=== PATIENT | female | born 1980 | race Caucasian/White ===

== ENCOUNTER 2020-05-21 09:09 | Outpatient (NON) | payer OTHER, SELFPAY ==
[2020-05-21 22:15] LABS: SARS-CoV-2 RNA PCR Negative
== END 2020-05-21 09:10 ==
PROVIDERS: Visit Provider Nurse Practitioner Obstetrics & Gynecology
DX: Z20.828 Contact with and (suspected) exposure to other viral communicable diseases (principal); R05 Cough; J02.9 Acute pharyngitis, unspecified; R19.7 Diarrhea, unspecified; R53.1 Weakness
CPT/HCPCS: 87635; C9803; U0003

== ENCOUNTER → 2020-07-25 13:14 | Outpatient (CLI) | payer OTHER, MEDICARE, SELFPAY ==
--- NOTE | ~2020-07-25 | US_ITS ---
US abdomen limited INDICATION: Right upper quadrant pain and bloating PROCEDURE: Realtime right upper abdominal ultrasound. COMPARISON: No prior studies for comparison. FINDINGS: The pancreas is normal without focal mass or pancreatic ductal dilation. Liver echotexture is normal without focal mass or intrahepatic biliary dilatation. There is normal directional flow i n the portal vein. The gallbladder is normal without stones, gallbladder wall thickening or pericholecystic fluid. Comm on bile duct measures 3 mm. No sonographic Felton's sign. IMPRESSION: 1: Normal limited abdominal ultrasound. Reviewed, dictated and finalized at location B.
== END ==
DX: R10.11 Right upper quadrant pain (principal)
CPT/HCPCS: 76705

== ENCOUNTER → 2020-11-19 12:31 | Outpatient (CLI) | payer OTHER, MEDICARE, SELFPAY ==
--- NOTE | ~2020-11-19 | MM_ITS ---
EXAMINATION: MM screening ely BI w elie HISTORY: Screening TECHNIQUE: Craniocaudal and mediolateral oblique 3-D tomosynthesis images were obtained and synthetic 2-D images were generated. CAD analysis was submitted and interpreted. COMPARISON: No prior mammogram is available for comparison at this institution. BREAST PARENCHYMAL COMPOSITION: The breasts are heterogeneously dense, which may obscure small masses . FINDINGS: Bilateral breast asymmetries are stable. There is no evidence of suspicious mass, calcifica tion, or architectural distortion to suggest malignancy in either breast. There has been no suspiciou s interval change. IMPRESSION: 1. No mammographic evidence of malignancy. 2. Recommend routine screening mammography in one year. BI-RADS Category 1: Negative Reviewed, dictated and finalized at location D. ING ROD COATER
== END ==
PROVIDERS: PCP Nurse Practitioner Psychiatric/Mental Health; Visit Provider Nurse Practitioner Obstetrics & Gynecology
DX: Z12.31 Encounter for screening mammogram for malignant neoplasm of breast (principal)
CPT/HCPCS: 77063; 77067

== ENCOUNTER → 2021-02-17 10:45 | Outpatient (CLI) | payer OTHER, MEDICARE, SELFPAY ==
--- NOTE | ~2021-02-17 | CT_ITS ---
EXAMINATION: CT abdomen pelvis w con INDICATION: Pelvic and perineal pain TECHNIQUE: Computed tomographic images of the abdomen and pelvis were obtained after the administrati on of 100 cc of Omnipaque 350 intravenous contrast. The dose-length product (DLP) was 900.64 mGy-cm. Automated exposure control and iterative reconstruction technique were employed. COMPARISON: 01/20/2018 FINDINGS: The lung bases are clear. The heart size is normal. Low attenuation lesions of the liver me asuring up to 3 mm likely represent cysts. The spleen, pancreas, gallbladder, and adrenal glands are normal. The kidneys are unremarkable. No pathologically enlarged abdominal or pelvic lymph nodes are identified. There is no free intraperitoneal gas or evidence of bowel obstruction. IMPRESSION: 1. No CT correlate for the patient's symptoms. Reviewed, dictated and finalized at location A.
== END ==
PROVIDERS: Visit Provider Nurse Practitioner Obstetrics & Gynecology
DX: R10.2 Pelvic and perineal pain (principal)
CPT/HCPCS: 74177; Q9967

== ENCOUNTER → 2021-06-05 10:13 | Outpatient (CLI) | payer OTHER, MEDICARE, SELFPAY ==
--- NOTE | ~2021-06-05 | XR_ITS ---
EXAMINATION: XR_CERV2-3V_CR EXAM DATE: 06/05/2021 10:35 INDICATION: Cervicalgia posteriorly, sometimes down both arms. TECHNIQUE: Cervical spine frontal, lateral, lateral swimmers, and open-mouth odontoid projections. C omparison is made to prior examination from 12/28/2016. FINDINGS: Mild progression in the now moderate loss of the C5-C6 disc height. 2 mm retrolisthesis at this level. The vertebral bodies are otherwise aligned. The vertebral body and disc heights are othe rwise well maintained. Prevertebral soft tissue and pre-dens space are within normal limits. The odon toid process is intact. The lateral masses of C1 line up with C2. Mild cervical facet arthropathy. IMPRESSION: 1. C5-6 moderate disc disease. 2. Mild cervical arthropathy. . Reviewed, dictated and finalized at location B.
== END ==
DX: M47.812 Spondylosis without myelopathy or radiculopathy, cervical region (principal)
CPT/HCPCS: 72040

== ENCOUNTER → 2021-08-05 13:10 | Outpatient (CLI) | payer OTHER, MEDICARE, SELFPAY ==
--- NOTE | ~2021-08-05 | MR_ITS ---
EXAMINATION: MR cervical spine wo con EXAM DATE: 08/05/2021 13:59 INDICATION: Cervicalgia. Neck pain, right arm numbness. Weakness. TECHNIQUE: Multi-sequential, multiplanar MR images of the cervical spine were obtained without contra st. Axial T2, axial T2 MERGE sequence. Sagittal T1, T2, T2 fat saturation images also obtained. Com parison is made to prior examination from 09/12/2017. FINDINGS: There is mild to moderate disc disease at C5-6. There is mild reversal of the normal cervi anibal lordosis which may be positional or spasm. The spinal cord signal intensity and intrinsic morpho logy is normal. Cervicomedullary junction is normal in appearance. There are no suspicious marrow sig nal abnormalities. Paraspinal soft tissue is unremarkable. Level by level evaluation: C2-C3: Disc does not extend beyond the endplate margin. Uncovertebral joint arthropathy: None. Facet joint arthropathy: None. Neural foraminal stenosis: No stenosis. Central canal stenosis: No stenosis. C3-C4: Disc does not extend beyond the endplate margin. Uncovertebral joint arthropathy: Mild bilateral. Facet joint arthropathy: None. Neural foraminal stenosis: No stenosis. Central canal stenosis: No stenosis. C4-C5: Disc does not extend beyond the endplate margin. Uncovertebral joint arthropathy: Mild bilateral. Facet joint arthropathy: None. Neural foraminal stenosis: No stenosis. Central canal stenosis: No stenosis. C5-C6: Disc does not extend beyond the endplate margin. Uncovertebral joint arthropathy: Moderate bilateral. Facet joint arthropathy: Mild bilateral. Neural foraminal stenosis: Moderate to severe right, moderate left. Central canal stenosis: Mild. C6-C7: Disc does not extend beyond the endplate margin. Uncovertebral joint arthropathy: None. Facet joint arthropathy: Mild right. Neural foraminal stenosis: No stenosis. Central canal stenosis: No stenosis. C7-T1: Disc does not extend beyond the endplate margin. Uncovertebral joint arthropathy: None. Facet joint arthropathy: Mild bilateral. Neural foraminal stenosis: No stenosis. Central canal stenosis: No stenosis. IMPRESSION: 1. C5-6 disc bulge, uncovertebral joint arthropathy with moderate to severe right, moderate left jarad ral foraminal stenosis. 2. Otherwise mild cervical spondylosis. Reviewed, dictated and finalized at location A. IMPRESSION: 1. C5-6 disc bulge, uncovertebral joint arthropathy with moderate to severe ri ght, moderate left neural foraminal stenosis. 2. Otherwise mild cervical spondylosis.
== END ==
PROVIDERS: Visit Provider Pediatrics Pediatric Rheumatology
DX: M50.222 Other cervical disc displacement at C5-C6 level (principal); M47.892 Other spondylosis, cervical region
CPT/HCPCS: 72141

== ENCOUNTER → 2022-01-13 13:41 | Outpatient (CLI) | payer OTHER, MEDICARE, SELFPAY ==
--- NOTE | ~2022-01-13 | MM_ITS ---
EXAMINATION: MM screening ely BI w elie HISTORY: Screening mammogram TECHNIQUE: Craniocaudal and mediolateral oblique 3-D tomosynthesis images were obtained and synthetic 2-D images were generated. CAD analysis was submitted and interpreted. COMPARISON: November 19, 2020 bilateral screening mammogram October 15, 2019 bilateral diagnostic mammography and bilateral complete breast ultrasound 09/12/2017 bilateral screening mammogram BREAST PARENCHYMAL COMPOSITION: The breasts are heterogeneously dense, which may obscure small masses . FINDINGS: There is no evidence of suspicious mass, calcification, or architectural distortion to sugg est malignancy in either breast. There has been no suspicious interval change. IMPRESSION: 1. No mammographic evidence of malignancy. 2. Recommend routine screening mammography in one year. BI-RADS Category 1: Negative Reviewed, dictated and finalized at location A.
== END ==
PROVIDERS: Visit Provider Nurse Practitioner Obstetrics & Gynecology
DX: Z12.31 Encounter for screening mammogram for malignant neoplasm of breast (principal)
CPT/HCPCS: 77063; 77067

== ENCOUNTER → 2022-05-10 12:38 | Outpatient (CLI) | payer OTHER, MEDICARE, SELFPAY ==
--- NOTE | ~2022-05-10 | US_ITS ---
US thyroid INDICATION: Thyroid goiter TECHNIQUE: Real-time sonographic images of the thyroid gland were obtained. COMPARISON: No prior studies for comparison. FINDINGS: The right thyroid lobe measures 0.9 x 1.2 x 1.8 cm. The left thyroid lobe measures 5.1 x 1 .5 x 1.9 cm. There is normal echotexture and echogenicity throughout the thyroid gland. There is a be nign 2 mm cystic mass of the right thyroid lobe. Normal vascular flow is present. IMPRESSION: 1. Benign 2 mm cyst of the right thyroid lobe. Otherwise, unremarkable thyroid ultrasound.. Reviewed, dictated and finalized at location A.
== END ==
PROVIDERS: PCP Nurse Practitioner Family; Visit Provider Nurse Practitioner Obstetrics & Gynecology
DX: E04.9 Nontoxic goiter, unspecified (principal); R13.10 Dysphagia, unspecified
CPT/HCPCS: 76536

== ENCOUNTER → 2022-05-13 12:09 | Outpatient (CLI) | payer OTHER, MEDICARE, SELFPAY ==
--- NOTE | ~2022-05-13 | XR_ITS ---
XR cervical spine 4-5V DATE: 05/13/2022 12:31 INDICATION: Neck pain TECHNIQUE: AP, open-mouth, neutral, flexion and extension lateral views COMPARISON: 08/05/2021 MR cervical spine FINDINGS: There is straightening of the cervical spine. C1 and C2 are normally aligned and the odontoid process is intact. C2-3, C3-4 and C4-5 as well as C6-7 interspaces are well preserved. There is moderately prominent degenerative disc disease, posterior spurring and mild retrolisthesis a t C5-6. There is prominent uncovertebral joint spurring bilaterally at C5-6. There is no cervical instability on flexion or extension. IMPRESSION: Moderately severe degenerative disc disease, mild retrolisthesis and prominent uncoverteb ral joint spurring at C5-6 Reviewed, dictated and finalized at location B. IMPRESSION: Moderately severe degenerative disc disease, mild retrolisthesis an d prominent uncovertebral joint spurring at C5-6
== END ==
PROVIDERS: PCP Nurse Practitioner Family
DX: M50.322 Other cervical disc degeneration at C5-C6 level (principal)
CPT/HCPCS: 72050

== ENCOUNTER → 2022-06-01 11:27 | Outpatient (CLI) | payer OTHER, MEDICARE, SELFPAY ==
--- NOTE | ~2022-06-01 | US_ITS ---
EXAMINATION: US renal BI DATE: 06/01/2022 11:45 INDICATION: Flank and pelvic pain. TECHNIQUE: Multiple ultrasound grayscale images of the kidneys were obtained. COMPARISON: None. FINDINGS: The right kidney measures an 0.0 x 5.7 x 5.9 cm. The left kidney measures 10.5 x 4.8 x 5.1 cm. The ki dneys demonstrate normal echogenicity. There is no hydronephrosis in either kidney. No stones identi fied. The bladder is normal. IMPRESSION: 1. Normal kidneys without hydronephrosis. Reviewed, dictated and finalized at location A.
== END ==
PROVIDERS: PCP Nurse Practitioner Obstetrics & Gynecology; Visit Provider Nurse Practitioner Obstetrics & Gynecology
DX: R10.9 Unspecified abdominal pain (principal)
CPT/HCPCS: 76775

== ENCOUNTER → 2022-10-12 11:06 | Outpatient (CLI) | payer OTHER, MEDICARE, SELFPAY ==
--- NOTE | ~2022-10-12 | US_ITS ---
EXAMINATION: US soft tissue head and neck DATE: 10/12/2022 11:37 INDICATION: Right neck mass. TECHNIQUE: Multiple ultrasound images of the thyroid were obtained. COMPARISON: Ultrasound 05/10/2022, cervical spine MRI 08/05/2021 FINDINGS: The right thyroid lobe measures 5.0 x 1.4 x 1.8 cm. The left thyroid lobe measures 4.8 x 1.3 x 1.7 c m. In the right thyroid lobe, there is a 2 mm nodule. In the left thyroid lobe, there is a 4 mm nodu le. There is no abnormal mass or lymphadenopathy in the patient's area of concern in right neck. IMPRESSION: 1. No abnormal mass or lymphadenopathy in the patient's area of concern in right neck. 2. Small thyroid nodules, likely not clinically significant. No follow-up is needed. Reviewed, dictated and finalized at location A. AND INSURANCE MANAGER IMPRESSION: 1. No abnormal mass or lymphadenopathy in the patient's area of concern in righ t neck. 2. Small thyroid nodules, likely not clinically significant. No follow-up is ne eded.
== END ==
PROVIDERS: PCP Nurse Practitioner; Visit Provider Nurse Practitioner
DX: R22.1 Localized swelling, mass and lump, neck (principal); E04.2 Nontoxic multinodular goiter
CPT/HCPCS: 76536

== ENCOUNTER → 2022-10-21 13:16 | Outpatient (CLI) | payer OTHER, MEDICARE, SELFPAY ==
--- NOTE | ~2022-10-21 | XR_ITS ---
AP and lateral views of the right hip Clinical history: Pain Findings: No acute fracture or dislocation is seen. Osseous alignment is anatomic. Right hip and righ t SI joint are preserved. Soft tissues are unremarkable. Impression: No significant abnormality is seen. Reviewed, dictated and finalized at [facility]. STRING WINDER Impression: No significant abnormality is seen.
== END ==
PROVIDERS: PCP Nurse Practitioner; Visit Provider Nurse Practitioner
DX: M25.551 Pain in right hip (principal)
CPT/HCPCS: 73502

== ENCOUNTER → 2022-11-08 09:54 | Outpatient (CLI) | payer OTHER, MEDICARE, SELFPAY ==
--- NOTE | ~2022-11-08 | MR_ITS ---
MRI of the right hand CLINICAL HISTORY: Inflammatory arthritis TECHNIQUE: Axial T1-weighted, STIR, and T1 fat-sat images, coronal T1-weighted and STIR images, and s agittal T1-weighted and STIR images were performed. Following intravenous administration of 17 cc Mul tiHance gadolinium, T1-weighted fat-sat imaging was performed in the axial and sagittal planes. IMPRESSION: Probable focal cystic change at the second metacarpal head. Otherwise, bone marrow signals are otherw ise unremarkable. No distinct erosive change. No other bone marrow edema or fracture identified. Visu ally joint spaces are preserved. No joint effusion or arthropathy clearly evident. Visualized collate ral ligaments and the fingers are intact. Visualized intrinsic musculature of the hand is unremarkable. Flexor and extensor tendons are unremar kable. Median nerve unremarkable. No abnormal postcontrast enhancement identified. IMPRESSION: No significant abnormality identified. Reviewed, dictated and [place] [facility] [place] WARE DEVELOPMENT ADVISOR IMPRESSION: Probable focal cystic change at the second metacarpal head. Otherwise, bone mar row signals are otherwise unremarkable. No distinct erosive change. No other steve ne marrow edema or fracture identified. Visually joint spaces are preserved. No joint effusion or arthropathy clearly evident. Visualized collateral ligaments and the fingers are intact. Visualized intrinsic musculature of the hand is unremarkable. Flexor and extens or tendons are unremarkable. Median nerve unremarkable. No abnormal postcontrast enhancement identified.
--- NOTE | ~2022-11-08 | MR_ITS ---
MRI of the left hand CLINICAL HISTORY: Inflammatory arthritis TECHNIQUE: Axial T1-weighted, STIR, and T1 fat-sat images, coronal T1-weighted and STIR images, and s agittal T1-weighted and STIR images were performed. Following intravenous administration of 17 cc Mul tiHance gadolinium, T1-weighted fat-sat imaging was performed in the axial and sagittal planes. IMPRESSION: Bone marrow signals are unremarkable. No distinct erosive change. No bone marrow edema or fracture id entified. Visually joint spaces are preserved. No joint effusion or arthropathy clearly evident. Visu alized collateral ligaments and the fingers are intact. Visualized intrinsic musculature of the hand is unremarkable. Flexor and extensor tendons are unremar kable. Median nerve unremarkable. No abnormal postcontrast enhancement identified. IMPRESSION: No significant abnormality identified. Reviewed, dictated and finalized at location M. F LOAD DISPATCHER IMPRESSION: Bone marrow signals are unremarkable. No distinct erosive change. No bone marro w edema or fracture identified. Visually joint spaces are preserved. No joint e ffusion or arthropathy clearly evident. Visualized collateral ligaments and the fingers are intact. Visualized intrinsic musculature of the hand is unremarkable. Flexor and extens or tendons are unremarkable. Median nerve unremarkable. No abnormal postcontrast enhancement identified.
== END ==
PROVIDERS: PCP Nurse Practitioner
DX: M13.80 Other specified arthritis, unspecified site (principal)
CPT/HCPCS: 73220; A9577

== ENCOUNTER 2022-12-03 11:49 | Emergency (ER) | payer OTHER, MEDICARE, SELFPAY ==
[2022-12-03] VITALS (15 sets, daily range): BP systolic 113–136; BP diastolic 62–86; PULSE 72–99; RESP 11–18; TEMP 36.9; O2SAT 99–100
--- NOTE | ~2022-12-03 | XR_ITS ---
EXAMINATION: XR chest 2V 12/03/2022 13:05 INDICATION: Chest pain and shortness of breath PROCEDURE: 2 view chest COMPARISON: 10/27/2016 FINDINGS: The lungs are clear. The cardiomediastinal silhouette is within normal limits. There are no pleural effusions. There is no pneumothorax suspected. IMPRESSION: 1: NO ACUTE CARDIOPULMONARY DISEASE. Reviewed, dictated and finalized at location B. WAY PATROL OFFICER
--- NOTE | ~2022-12-03 | CT_ITS ---
EXAMINATION: CTA chest PE protocol DATE: 12/03/2022 18:01 INDICATION: Chest tightness and shortness of breath TECHNIQUE: Computed tomography angiography (CTA) of the chest was performed with 100 mL Omnipaque-350 intravenous contrast timed to evaluate the pulmonary arteries. Coronal maximum intensity projection 3D-reconstructions were created by the technologist. The dose-length product (DLP) was 349.42 mGy-cm. Automated exposure control and iterative reconstruction technique were employed. COMPARISON: None. FINDINGS: The pulmonary arteries are moderately well-opacified. No pulmonary embolism is identified. No pathologically enlarged thoracic lymph nodes are identified. The heart size is normal. No pleural effusion or pneumothorax. There is mild dependent atelectasis. There is mild thoracic spondylosis. IMPRESSION: 1. No pulmonary embolism or acute cardiopulmonary abnormality. Reviewed, dictated and finalized at location F. RAL PRE ARRANGEMENT COUNSELOR
--- NOTE | 2022-12-03 12:27 | ECG_ITS ---
Measurements Intervals [place] Rate: 97 P: 71 DC: 145 QRS: 29 QRSD: 98 T: 5 QT: 340 QTc: 432 Interpretive Statements SINUS RHYTHM POSSIBLE LEFT ATRIAL ENLARGEMENT DELAYED PRECORDIAL R/S TRANSITION BORDERLINE ST-T WAVE ABNORMALITY- ANTEROLAT/INF LEADS BASELINE WANDER- V3, V5 BORDERLINE ECG NO PREVIOUS ECG AVAILABLE FOR COMPARISON Electronically Signed On 12-03-2022 16:50:01 ARTIFICIAL INSEMINATOR by Alli Melendez D.O.
[2022-12-03 13:08] LABS: Basophils Absolute Auto 0.1 K/mm3 (0.0-0.1); Basophils Percent Auto 0.9 % (0.2-1.2); Eosinophils Percent Auto 0.4 % (0-4.4); Hematocrit 38.7 % (37.0-47.0); Hemoglobin 13.5 g/dL (12.0-15.0); Immature Granulocyte Absolute 0.02 K/mm3 (0.00-0.031); Immature Granulocyte Percent A 0.4 % (0-0.5); Lymphocytes Absolute Auto 1.94 K/mm3 (0.9-3.2); Lymphocytes Percent Auto 36.3 % (18.3-44.2); Mean Corpuscular HGB Conc 34.9 g/dl (32-36); Mean Corpuscular Hemoglobin 31.6 pg (26-34); Mean Corpuscular Volume 90.6 fl (80-100); Mean Platelet Volume 10.3 fl (7.4-10.4); Monocytes Absolute Auto 0.4 K/mm3 (0.1-0.6); Monocytes Percent Auto 6.5 % (2.6-8.5); Neutrophils Percent Auto 55.5 % (45.5-73.1); Platelet Count Result 234 k/mm3 (150-375); Red Blood Count 4.27 M/mm3 (4.2-5.4); Red Cell Distribution Width 11.5 % (11.5-14.5); White Blood Count 5.4 K/mm3 (4.5-10.0)
[2022-12-03 13:09] LABS: Alanine Aminotransferase 19 U/L (6-35); Albumin Level 4.7 g/dL (3.5-5.1); Alkaline Phosphatase 67 U/L (38-126); Anion Gap 8 mmol/L (8-16); Aspartate Amino Transferase 28 U/L (14-36); Bilirubin,Total 0.4 mg/dL (0.2-1.3); Blood Urea Nitrogen 9 mg/dL (7-17); Calcium 9.3 mg/dL (8.4-10.2); Carbon Dioxide 23 mmol/L (22-30); Chloride 106 mmol/L (98-107); Estimated Glomerular Filt Rate > 60; Glucose 101 mg/dL (65-110); Lipase 47 U/L (23-300); Sodium 137 mmol/L (137-145)
[2022-12-03 13:13] LABS: Appearance Urine Clear (Clear); Bilirubin Urine Negative (Negative); Blood Urine Negative (Negative); Color Urine Yellow (Yellow); Glucose Urine UA Negative (Negative); Ketones Urine Negative (Negative); Leukocyte Esterase Ur Negative LEU/UL (Negative); Nitrate Urine Negative (Negative); Protein Urine Negative (Negative); Specific Grav Ur 1.008 (1.001-1.035); Urobilinogen Urine 0.2 mg/dL (<2.0); pH Urine 8.5 (5.0-9.0)
[2022-12-03 13:18] LABS: Add Urine Microscopic? NO
[2022-12-03 13:20] LABS: Troponin I < 0.012 ng/mL (0.000-0.034)
[2022-12-03 15:26] LABS: Strep Group A RT-PCR NOT DETECTED (Negative)
[2022-12-03 15:34] LABS: Influenza A QL RT-PCR Negative (Negative); Influenza B QL RT-PCR Negative (Negative); SARS-CoV-2 RNA PCR Negative
--- NOTE | 2022-12-03 15:37 | ED.GENADULT ---
HPI - General Adult General Chief complaint: Unspecified Stated complaint: dyspnea Time Seen by Provider: 12/03/22 15:33 History of Present Illness HPI narrative: 42-year-old female here for evaluation of shortness of breath over the past several days. Patient states that she has had an accompanying chest pain on the left side that is worse with deep breaths. Contacted PMD who recommended ED eval. denies any leg swelling, fevers or chills, cough or congestion, sick contacts. She is previously healthy and denies any cardiac history, but does have a history of fibromyalgia and rheumatoid arthritis. Related Data Allergies Allergy/AdvReac Type Severity Reaction Status Date / Time No Known Allergies Allergy Unknown Verified 06/20/17 14:08 Review of Systems Review of Systems: Gen: Denies fevers or chills Eyes: Denies eye pain or visual change ENT: Denies congestion Respiratory: Reports shortness of breath CV: Reports chest pain GI: Denies abdominal pain nausea, emesis or diarrhea denies burning, urgency, frequency or hematuria Musculoskeletal: Denies back pain or muscle pain Neuro: Denies numbness, tingling, weakness or focal weakness Skin: Denies rash Except as documented, all other systems reviewed and negative Exam Narrative: APPEARANCE: Well appearing, no pain in distress, well-nourished. Head: Normocephalic and atraumatic. EYES: PERRLA/EOMI, conjunctivae clear NOSE: No nasal drainage EARS: External ear normal in appearance THROAT: Oropharynx is clear. Mucous membranes are moist. NECK: Supple. No adenopathy, no masses. RESPIRATORY: Airway patent, respirations nonlabored. Clear to auscultation bilaterally, no rales, rhonchi, wheezing. CARDIOVASCULAR: Regular rate and rhythm without murmurs, rubs, or gallops. ABDOMINAL: Normoactive bowel sounds. Soft, nontender, nondistended. No rebound tenderness or guarding. MUSCULOSKELETAL: Extremities are warm and well-perfused. Moves all extremities well. No edema. NEURO: Normal speech. No focal neurologic deficits. SKIN: Skin is warm and dry. No rashes. PSYCHIATRIC: Normal affect/mood. Course Vital Signs Vital signs: Vital Signs Temperature 98.5 F 12/03/22 13:12 Pulse Rate 99 12/03/22 13:12 Respiratory Rate 16 12/03/22 13:12 Blood Pressure 136/86 12/03/22 13:12 Pulse Oximetry 100 12/03/22 13:12 Oxygen Delivery Room Air 12/03/22 13:12 Temperature 98.5 F 12/03/22 13:12 Pulse Rate 87 12/03/22 19:00 Respiratory Rate 16 12/03/22 19:00 Blood Pressure 116/86 12/03/22 19:00 Pulse Oximetry 100 12/03/22 19:00 Oxygen Delivery Room Air 12/03/22 13:12 Medical Decision Making [facility] Narrative Medical decision making narrative: 42-year-old female here for evaluation of chest pain and shortness of breath over the past several days. She is nontoxic in appearance and has normal vital signs, no signs of respiratory distress, heart and lungs are clear to auscultation throughout. Exam without evidence of volume overload so doubt heart failure. EKG without signs of active ischemia. Given the timing of pain to ER presentation, single troponin was negative so doubt NSTEMI. CTA is negative for PE which was obtained after positive D-dimer. Presentation not consistent with,pneumothorax (not visualized on chest xr), thoracic aortic dissection, pericarditis, tamponade, pneumonia (no infectious symptoms, clear chest xr), myocarditis (no recent illness, neg trop). Feeling better after Toradol. HEART score 2, plan to discharge patient home with PMD follow up. Return precautions were discussed and she voiced understanding. Vital Signs Vital Signs: Vital Signs Temperature 98.5 F 12/03/22 13:12 Pulse Rate 99 12/03/22 13:12 Respiratory Rate 16 12/03/22 13:12 Blood Pressure 136/86 12/03/22 13:12 Pulse Oximetry 100 12/03/22 13:12 Oxygen Delivery Room Air 12/03/22 13:12 Temperature 98.5 F 12/03/22 13:12 Pulse Rate 87 12/03/22 19:00
--- NOTE | 2022-12-03 15:53 | PC.NURSE ---
Added D dimer on to lab at 1554. talked to Calli in the lab.
[2022-12-03 16:07] LABS: Prothrombin Time 12.9 Seconds (11.1-14.7)
[2022-12-03 16:08] LABS: Partial Thromboplastin Time 27.2 SECONDS (22.3-36.8)
[2022-12-03] MEDS: KETOROLAC 15 MG/ML VIAL (*BKC) IV PUSH (16:21)
[2022-12-03 16:29] LABS: D Dimer 0.57 ug/mL (<0.48)
[2022-12-03 18:17] LABS: Pregnancy On Board Control Positive; Urine Pregnancy Test Negative
== END 2022-12-03 19:00 | disposition home or self-care (01) ==
PROVIDERS: Emergency Medicine; Emergency Provider Physician Assistant; PCP Nurse Practitioner
DX: R09.1 Pleurisy (principal); M79.7 Fibromyalgia; M06.9 Rheumatoid arthritis, unspecified; Z20.822 Contact with and (suspected) exposure to COVID-19
CPT/HCPCS: 36415; 71046; 71275; 80053; 81003; 81025; 83690; 84484; 85025; 85380; 85610; 85730; 87636; 87651; 93005; 96374; 99284; J1885; Q9967

== ENCOUNTER 2023-02-23 10:16 | Outpatient (CLI) | payer OTHER, MEDICARE, SELFPAY ==
--- NOTE | 2023-02-24 15:30 | WPDPFTINT ---
PFT Procedure Performed PFT Procedure Performed Plethysmography (Lung Vol) Diffusing Cap (DLCO) Flow Vol Loop Spirometry w/o Bronchodil PFT Interpretation Lung volumes were measured with the body plethysmography method. Lung volumes are unremarkable. Spirometry showed normal expiratory flow rates and a normal FEV1 to FVC ratio of 83%. No post bronchodilator study carried out. Lung diffusion capacity is within the normal range at 97% predicted. The flow volume loop is unremarkable Impression: Spirometry, lung volumes, and lung diffusion capacity all within the normal range.
== END 2023-02-23 10:17 | disposition home or self-care (01) ==
PROVIDERS: PCP Nurse Practitioner; Visit Provider Internal Medicine Endocrinology, Diabetes & Metabolism
DX: R06.09 Other forms of dyspnea (principal)
CPT/HCPCS: 94375; 94726; 94729

== ENCOUNTER → 2023-03-24 11:59 | Outpatient (CLI) | payer OTHER, SELFPAY ==
--- NOTE | ~2023-03-24 | MM_ITS ---
EXAMINATION: MM screening ely BI w elie HISTORY: Screening mammogram TECHNIQUE: Craniocaudal and mediolateral oblique 3-D tomosynthesis images were obtained and synthetic 2-D images were generated. CAD analysis was submitted and interpreted. COMPARISON: January 13, 2022, November 19, 2020, 10/15/2019 bilateral screening mammogram examinations BREAST PARENCHYMAL COMPOSITION: The breasts are heterogeneously dense, which may obscure small masses . FINDINGS: Stable fibroglandular asymmetry. Occasional benign calcifications. There is no evidence of suspicious mass, calcification, or architectural distortion to suggest malignancy in either breast. T here has been no suspicious interval change. IMPRESSION: 1. No mammographic evidence of malignancy. 2. Recommend routine screening mammography in one year. BI-RADS Category 2: Benign finding(s). Reviewed, dictated and finalized at location A.
== END ==
PROVIDERS: PCP Nurse Practitioner Obstetrics & Gynecology; Visit Provider Nurse Practitioner Obstetrics & Gynecology
DX: Z12.31 Encounter for screening mammogram for malignant neoplasm of breast (principal)
CPT/HCPCS: 77063; 77067

== ENCOUNTER → 2023-11-14 13:15 | Outpatient (CLI) | payer OTHER, MEDICARE, SELFPAY ==
--- NOTE | ~2023-11-14 | CT_ITS ---
EXAMINATION: CT abdomen pelvis w con DATE: 11/14/2023 13:41 INDICATION: Left upper quadrant and pelvic pain TECHNIQUE: Computed tomography (CT) of the abdomen and pelvis was performed with 100 CC Omnipaque 350 intravenous contrast. Automated exposure control and iterative reconstruction technique were employe d. Exam dose: 755.22 mGy-cm total exam DLP. COMPARISON: 02/17/2021 CT abdomen pelvis FINDINGS: The lung bases are clear. Normal heart size. No pericardial or pleural effusion. 7 mm probable right hepatic cyst. The liver, spleen, pancreas, and adrenal glands and kidneys are oth erwise unremarkable. The gallbladder is present. No gallbladder wall thickening or pericholecystic fluid or fat stranding. No bile duct or pancreatic duct dilatation. No urinary tract calculus or hydroureteronephrosis. Normal caliber of the abdominal aorta. No intraperitoneal or retroperitoneal or pelvic mass lesion or adenopathy or ascites. The urinary bladder is unremarkable. Status post hysterectomy. Normal appendix. There is a prominent amount of fecal material in the colon. No bowel obstruction, steve wel wall thickening, pneumatosis or intraperitoneal free air is detected. Included skeletal structures are unremarkable. IMPRESSION: 7 mm probable hepatic cyst Status post hysterectomy Normal appendix Prominent of fecal material in the colon; no bowel obstruction or intraperitoneal free air Reviewed, dictated and finalized at Location A. Reviewed, dictated and finalized at location B. RESOURCE SPECIALIST IMPRESSION: 7 mm probable hepatic cyst Status post hysterectomy Normal appendix Prominent of fecal material in the colon; no bowel obstruction or intraperitone al free air
[2023-11-14 13:33] LABS: Estimated Glomerular Filt Rate > 60
== END ==
PROVIDERS: PCP Nurse Practitioner Obstetrics & Gynecology; Visit Provider Nurse Practitioner
DX: R10.9 Unspecified abdominal pain (principal)
CPT/HCPCS: 74177; Q9967

== ENCOUNTER 2024-06-07 14:56 | Outpatient (CLI) | payer OTHER, MEDICARE, SELFPAY ==
--- NOTE | ~2024-06-07 | MM_ITS ---
EXAMINATION: MM screening ely BI w elie HISTORY: Screening TECHNIQUE: Craniocaudal and mediolateral oblique 3-D tomosynthesis images were obtained and synthetic 2-D images were generated. CAD analysis was submitted and interpreted. COMPARISON: Comparison to multiple prior studies sequentially, with oldest reviewed study dated 09/02. BREAST PARENCHYMAL COMPOSITION: Dense: The breasts are heterogeneously dense, which may obscure small masses FINDINGS: There is no evidence of suspicious mass, calcification, or architectural distortion to sugg est malignancy in either breast. There has been no suspicious interval change. IMPRESSION: 1. No mammographic evidence of malignancy. 2. Recommend routine screening mammography in one year. BI-RADS Category 1: Negative Reviewed, dictated and finalized at location B.
== END 2024-06-07 14:57 | disposition home or self-care (01) ==
PROVIDERS: PCP Nurse Practitioner; Visit Provider Nurse Practitioner
DX: Z12.31 Encounter for screening mammogram for malignant neoplasm of breast (principal)
CPT/HCPCS: 77063; 77067